=== PATIENT | male | born 1990 | race Caucasian/White ===

== ENCOUNTER 2022-12-30 09:38 | Emergency (ER) | payer OTHER, SELFPAY ==
--- NOTE | ~2022-12-30 | US_ITS ---
EXAMINATION: US SCROTUM CLINICAL INFORMATION: Right testicular pain. COMPARISON: None available. TECHNIQUE: A sonogram of the scrotum was performed assessing turner-scale appearance and color Doppler flow. Spectral Doppler analysis of the arterial and venous flow were performed in the testes bilaterally. FINDINGS: RIGHT: Right testicle measures 4.6 x 1.9 x 4.2 cm, volume 19.2 mL. No focal testicular parenchymal lesions are visualized. Spectral Doppler analysis of the arterial and venous flow is normal in the right testis. Right epididymal head is normal in size. There are small anechoic cysts in the epididymal head measuring 0.54 x 0.46 x 0.45 cm and 0.76 x 0.72 x 0.84 cm. No right hydrocele or varicocele is seen. Right epididymal Doppler flow is normal. LEFT: Left testicle measures 3.9 x 2.3 x 3.4 cm, volume 16.1 mL. No focal testicular parenchymal lesions are visualized. Spectral Doppler analysis of the arterial and venous flow is normal in the left testis. Left epididymal head is normal in size. There is a anechoic epididymal head cyst measuring 0.34 x 0.37 x 0.26). No left hydrocele or varicocele is seen. Left epididymal Doppler flow is normal. US/US scrotum IMPRESSION: Bilateral epididymal head cysts. Unremarkable bilateral testes. Normal arterial and venous Doppler flow seen to both testes and epididymis.
--- NOTE | ~2022-12-30 | CT_ITS ---
EXAMINATION: CT ABDOMEN AND PELVIS WITHOUT CONTRAST CLINICAL INFORMATION: Right flank pain radiating to right testicle. Right scrotal pain. COMPARISON: Ultrasound scrotum 12/30/2022 TECHNIQUE: Multidetector volumetric imaging was performed from the superior aspect of the liver through the pubic symphysis. Sagittal and coronal reformatted images were obtained on the technologist's workstation. This CT examination was performed using dose optimization techniques as appropriate, variously including the following: *Automated exposure control *Adjustment of mA and/or kV according to patient size (this includes techniques or standardized protocols for targeted exams where dose is matched to indication/reason for exam; i.e. extremities or head) *Use of iterative reconstruction technique DLP: 1340 mGy-cm FINDINGS: LUNG BASES: The visualized lung bases are unremarkable. LIVER, GALLBLADDER, AND BILIARY TREE: The liver is normal in size, shape, and attenuation. No focal hepatic lesion or biliary ductal dilatation is present. The gallbladder has been surgically removed. PANCREAS: Unremarkable. SPLEEN: Unremarkable. ADRENAL GLANDS: Unremarkable. KIDNEYS AND URETERS: The kidneys are normal in size, shape, and attenuation. There is a 4 mm radiopaque calculi right proximal ureter with mild hydroureteronephrosis and mild perinephric stranding. There are punctate densities seen in the midpole and upper pole right kidney probable small cyst radiopaque calculi measuring 1-2 mm. No radiopaque density seen in left kidney. No left-sided hydronephrosis. BLADDER: The bladder is unremarkable. GASTROINTESTINAL TRACT: There is scattered stool and gas seen in the colon without significant distention. The small bowel loops are normal caliber. Appendix is normal caliber. No inflammatory process seen in the abdomen. . Scattered calcifications are seen in the left pelvis ABDOMINAL WALL: Small umbilical hernia containing fat. LYMPH NODES: Normal. VASCULAR: Unremarkable. PELVIC VISCERA: Unremarkable. OSSEOUS STRUCTURES: No aggressive lytic or sclerotic process seen. CT/CT abdomen pelvis wo IV con IMPRESSION: 1. 4 mm radiopaque calculi right proximal ureter with mild hydroureteronephrosis and perinephric stranding. 2. There are punctate 1-2 mm radiopaque calculi in the midpole and upper pole right kidney. Fleischner guidelines were followed.
--- NOTE | ~2022-12-30 | US_ITS ---
EXAMINATION: US SCROTUM CLINICAL INFORMATION: Right testicular pain. COMPARISON: None available. TECHNIQUE: A sonogram of the scrotum was performed assessing turner-scale appearance and color Doppler flow. Spectral Doppler analysis of the arterial and venous flow were performed in the testes bilaterally. FINDINGS: RIGHT: Right testicle measures 4.6 x 1.9 x 4.2 cm, volume 19.2 mL. No focal testicular parenchymal lesions are visualized. Spectral Doppler analysis of the arterial and venous flow is normal in the right testis. Right epididymal head is normal in size. There are small anechoic cysts in the epididymal head measuring 0.54 x 0.46 x 0.45 cm and 0.76 x 0.72 x 0.84 cm. No right hydrocele or varicocele is seen. Right epididymal Doppler flow is normal. LEFT: Left testicle measures 3.9 x 2.3 x 3.4 cm, volume 16.1 mL. No focal testicular parenchymal lesions are visualized. Spectral Doppler analysis of the arterial and venous flow is normal in the left testis. Left epididymal head is normal in size. There is a anechoic epididymal head cyst measuring 0.34 x 0.37 x 0.26). No left hydrocele or varicocele is seen. Left epididymal Doppler flow is normal. US/US scrotum doppler IMPRESSION: Bilateral epididymal head cysts. Unremarkable bilateral testes. Normal arterial and venous Doppler flow seen to both testes and epididymis.
[2022-12-30 09:41] VITALS: BP 190/126; PULSE 75; RESP 19; TEMP 36.6; O2SAT 98; BMI 49.5
[2022-12-30 10:32] LABS: MANUAL DIFF FLAG NO
[2022-12-30 10:34] LABS: Basophils Absolute Auto 0.1 X10*3/uL (0.0-0.2); Basophils Percent Auto 0.6 % (0-2); Eosinophils Absolute Auto 0.1 X10*3/uL (0.0-0.4); Eosinophils Percent Auto 0.9 % (0-4); Hematocrit 42.9 % (42.0-52.0); Hemoglobin 14.9 g/dl (14.0-18.0); Imm Gran Abs Auto 0.03 X10*3/uL (0.00-0.03); Imm Gran Pct Auto 0.3 % (0.0-0.4); Lymphocytes Absolute Auto 1.9 X10*3/uL (1.2-4.9); Lymphocytes Percent Auto 20.4 % (20-40); Mean Corpuscular HGB Conc 34.7 g/dl (31.0-36.0); Mean Corpuscular Hemoglobin 29.1 pg (27.0-33.0); Mean Corpuscular Volume 83.8 fL (80.0-98.0); Mean Platelet Volume 10.2 fL (9.4-12.4); Monocytes Absolute Auto 0.6 X10*3/uL (0.1-1.2); Neutrophils Absolute Auto 6.8 x10*3/uL (2.0-8.3); Neutrophils Percent Auto 71.8 % (45-73); Platelet Count 230 X10*3/uL (160-400); Red Blood Count 5.12 X10*6/uL (4.60-5.80); Red Cell Distribution Width 11.9 % (11.0-16.0); White Blood Count 9.5 X10*3/uL (4.8-10.8)
--- NOTE | 2022-12-30 10:48 | ED_ITS ---
HPI - Male Genitourinary General Chief complaint: Urogenital-Male Stated complaint: Kidney stone Time Seen by Provider: 12/30/22 10:48 Source: patient, RN notes reviewed and old records reviewed Mode of arrival: ambulatory History of Present Illness HPI Narrative: 32-year-old male with a past medical history of renal stones presenting to the ED complaining of right flank pain radiating to RLQ and right testicle with associated nausea and vomiting x this morning. Admits to similar symptoms in the past on contralateral side. Denies hematuria/dysuria, concern for STI/discharge, new sexual partners, trauma Related Data Previous Rx's Medication Instructions Recorded hydrocodone 5 mg-acetaminophen 325 1 tab PO Q8H PRN pain, severe 3 12/30/22 mg tablet days #9 tabs ketorolac 10 mg tablet 10 mg PO TID PRN pain 5 days #15 12/30/22 tabs prednisone 20 mg tablet 20 mg PO DAILY 5 days #5 tabs 12/30/22 tamsulosin 0.4 mg capsule (Flomax) 0.4 mg PO DAILY #14 caps 12/30/22 Allergies Allergy/AdvReac Type Severity Reaction Status Date / Time No Known Allergies Allergy Verified 12/30/22 09:40 Review of Systems 2 Review of Systems: Constitutional: No Fever, No Chills ENT/Mouth: No Ear Pain, No Nasal Congestion, No Sinus Pain, No Hoarseness, No sore throat, No Rhinorrhea, No Swallowing Difficulty Cardiovascular: No Chest Pain, No SOB Respiratory: No Cough Gastrointestinal: + Nausea, + Vomiting, No Diarrhea, No Constipation, + Abdominal pain Genitourinary: No Dysuria, No Urinary Frequency, No Hematuria, No Urinary Incontinence/retention, No Urgency, + Flank Pain Musculoskeletal: No joint pain, No Myalgias, No Joint Swelling Skin: No Skin Lesions, No rash Neuro: No Weakness Yes all other systems are reviewed and are negative Constitutional: Constitutional: Reports as per [facility] Past Medical History Attestation statement: The following information was validated with the patient. Source: old records reviewed Social History Advance Directives: No Advance Directives Information Provided: Yes Physical Exam 2 Vital Signs: Vital Signs: Last Vital Signs Temp 98.5 F 12/30/22 14:24 Pulse 76 12/30/22 14:24 Resp 16 12/30/22 14:24 BP 172/102 H 12/30/22 14:24 Pulse Ox 98 12/30/22 14:24 O2 Del Method Room Air 12/30/22 14:24 BMI result Body Mass Index 49.5 Const: General: cooperative, healthy appearing and no acute distress O rientation/consciousness: patient oriented x3 Limitations: no limitations HEENT: Head: Yes normal to inspection and Yes atraumatic Ears: hearing grossly normal bilaterally General nose exam: Normal external nose present Face and sinus: Yes normal facial exam Eyes: General: appearance normal, both eyes and all related structures EOM: EOMs intact bilaterally Neck: Neck: Yes normal visual inspection and Yes no meningeal signs Resp: Effort & Inspection: normal respiratory effort and no respiratory distress Auscultation: clear to auscultation bilaterally Cardio: Rate: regular rate Heart sounds: S1 normal heart sound present and S2 normal heart sound present GI: Inspection: Yes normal to inspection Palpation (GI): Soft to palpation, Tenderness to palpation present (GI) with no rebound tenderness, no guarding and not rigid : General: Yes CVA tenderness on the right Male General Exam: No hernia Penis: normal penis and circumcised Meatus: meatus normal Testes: no testicular swelling and testicular tenderness on the right Back/Spine/Pelvis: Back: CVA tenderness Skin: Rashes: no rashes Wounds: no wounds Neuro: General: patient oriented x3, tone normal and no meningeal signs C ranial nerves: Yes CN's II-XII intact bilaterally Gait exam (Neuro): Normal gait present Extrem: General: Yes normal to inspection Course Course Course Narrative: -1300-- labs reassuring CT abdomen pelvis wo IV con IMPRESSION: 1. 4 mm radiopaque calculi right proximal ureter with mild hydroureteronephrosis and perinephric stranding. 2. There are punctate 1-2 mm radiopaque calculi in the midpole and upper pole right kidney. Fleischner guidelines were followed. US scrotum IMPRESSION: Bilateral epididymal head cysts. Unremarkable bilateral testes. Normal arterial and venous Doppler flow seen to both testes and epididymis. -1308--on re-evaluation patient reports mild symptomatic improvement however still reports continued pain. Will consult Urology, Dr. Ramos > spoke with Urology who recommended trying Dilaudid and prednisone, if patient comfortable can be discharged home as stone should pass -1443--on re-evaluation patient reports symptomatic improvement, is tolerating p.o.. UA not infected. Feels comfortable with discharge home Results discussed with patient including worrisome signs and symptoms and strict return precautions, and when to return to the emergency department. They verbalized understanding and feel safe for discharge at this time. Medications Administered Discontinued Medications Generic Name Dose Route Start Last Admin Trade Name Freq PRN Reason Stop Dose Admin Sodium Chloride 1,000 mls @ 999 mls/hr 12/30/22 11:00 12/30/22 14:39 Ns IV 12/30/22 12:00 Infused .Q1H1M SRIKANTH Infusion Sodium Chloride 1,000 mls @ 999 mls/hr 12/30/22 12:45 12/30/22 14:30 Ns IV 12/30/22 13:45 999 mls/hr .Q1H1M SRIKANTH Administration Ketorolac Tromethamine 15 mg 12/30/22 10:48 12/30/22 11:00 Ketorolac Tromethamine 15 Mg/Ml Vial IVPUSH 12/30/22 10:49 15 mg ONCE ONE Administration Ketorolac Tromethamine 15 mg 12/30/22 12:04 12/30/22 12:09 Ketorolac Tromethamine 15 Mg/Ml Vial IVPUSH 12/30/22 12:05 15 mg ONCE ONE Administration Morphine Sulfate 2 mg 12/30/22 10:57 12/30/22 11:02 Morphine Sulfate 2 Mg/Ml Cartridge IVPUSH 12/30/22 10:58 2 mg ONCE ONE Administration Protocol Morphine Sulfate 2 mg 12/30/22 12:04 12/30/22 12:09 Morphine Sulfate 2 Mg/Ml Cartridge IVPUSH 12/30/22 12:05 2 mg ONCE ONE Administration Protocol Ondansetron HCl 4 mg 12/30/22 10:57 12/30/22 11:04 Ondansetron Hcl 4 Mg/2 Ml Vial IVPUSH 12/30/22 10:58 4 mg ONCE ONE Administration Prednisone 20 mg 12/30/22 13:44 12/30/22 14:54 Prednisone 20 Mg Tablet PO 12/30/22 13:45 20 mg ONCE ONE Administration Tamsulosin HCl 0.4 mg 12/30/22 12:34 12/30/22 12:53 Tamsulosin Hcl 0.4 Mg Capsule PO 12/30/22 12:35 0.4 mg ONCE ONE Administration Medical Decision Making Medical Decision Making [facility] Narrative: 32-year-old male with a past medical history of renal stones presenting to the ED complaining of right flank pain radiating to RLQ and right testicle with associated nausea and vomiting x this morning. On exam hypertensive likely from pain, appears uncomfortable, abdomen soft/nontender, R CVAT and right testicular tenderness noted. Concern for renal stone/colic vs UTI or pyelo. Testicular torsion on differential however lower. Lower suspicion for STI, diverticulitis/colitis or ischemic bowel Low suspicion for severe sepsis at this time Plan: Labs, UA, CT AP, ultrasound, IVF, pain control Please refer to course for remaining clinical decision making, interpretation of labs/imaging results, and discussions with consultants and/or family members. Differential Diagnosis Differential Diagnoses: The differential diagnosis associated with the presentation includes As above Admission/Observation Consideration of admission/observation: Escalation of care including admission/observation considered Lab Data [facility] Lab Attestation statement: I reviewed the patient's lab results. 12/30/22 10:29 12/30/22 10:29 Labs: Lab Results 12/30/22 12/30/22 12/30/22 Range/Units 10:29 11:36 13:53 WBC 9.5 (4.8-10.8) X10*3/uL RBC 5.12 (4.60-5.80) X10*6/uL Hgb 14.9 (14.0-18.0) g/dl Hct 42.9 (42.0-52.0) % MCV 83.8 (80.0-98.0) fL MCH 29.1 (27.0-33.0) pg MCHC 34.7 (31.0-36.0) g/dl RDW 11.9 (11.0-16.0) % Plt Count 230 (160-400) X10*3/uL MPV 10.2 (9.4-12.4) fL Immature Gran % (Auto) 0.3 (0.0-0.4) % Neut % (Auto) 71.8 (45-73) % Lymph % (Auto) 20.4 (20-40) % Chaves % (Auto) 6.0 (2-11) % Eos % (Auto) 0.9 (0-4) % Baso % (Auto) 0.6 (0-2) % Lymph # (Auto) 1.9 (1.2-4.9) X10*3/uL Chaves # (Auto) 0.6 (0.1-1.2) X10*3/uL Eos # (Auto) 0.1 (0.0-0.4) X10*3/uL Baso # (Auto) 0.1 (0.0-0.2) X10*3/uL Abs Immat Gran (auto) 0.03 (0.00-0.03) X10*3/uL Absolute Neuts (auto) 6.8 (2.0-8.3) x10*3/uL Absolute Nucleated RBC 0.000 (0.0-0.012) X10*3/uL Nucleated RBC % (auto) 0.0 (0.0-0.2) /100WBC Sodium 139 (135-145) mmol/L Potassium 4.0 (3.3-5.1) mmol/L Chloride 108 (96-108) mmol/L Carbon Dioxide 22 (22-29) mmol/L Anion Gap 13 (12-20) BUN 15 (9-16) mg/dL Creatinine 1.09 (0.5-1.4) mg/dL Estim Creat Clear Calc 153.7 Estimated GFR > 60 Random Glucose 132 H (60-115) mg/dL Calcium 9.9 (8.4-10.2) mg/dL Magnesium 1.7 (1.6-2.6) mg/dL Total Bilirubin 0.4 (0.0-1.0) mg/dL AST 37 (5-37) U/L ALT 74 H (0-40) U/L Alkaline Phosphatase 83 (39-117) U/L Total Protein 7.6 (6.5-8.0) g/dL Albumin 4.2 (3.5-5.0) g/dL Lipase 28 (8-78) U/L Urine Color Yellow Urine Appearance Clear Urine pH 5.5 (5.0-9.0) Ur Specific [place] 1.015 (1.005-1.025) Urine Protein Negative (Neg-Trace) mg/dL Urine Glucose (UA) Negative (Negative) mg/dL Urine Ketones Negative (Negative) mg/dL Urine Blood Trace H (Negative) Urine Nitrite Negative (Negative) Ur Leukocyte Esterase Negative (Negative) Urine RBC 0-2 (0-2) /HPF Urine WBC 0-5 (0-5) /HPF Ur Squamous Epith Cells 0-2 (0-2) /HPF Urine Bacteria None Seen (None Seen) Hyaline Casts 0-2 (0-2) /LPF Chlam trachomat DNA PCR NOT DETECTED (Not Detect.) N.gonorrhoeae DNA (PCR) NOT DETECTED (Not Detect.) Radiology Impression Discussion of test interpretation with radiology: I have reviewed the radiologist's reading. External Record Review External record reviewed: Inpatient record, Office record, Outpatient record, Prior outpatient labs, Prior outpatient radiology, Primary care record and Outside ED record Tests considered The following testing was considered but not selected: As above Prescription Management I considered prescription management with: Pain Medication Chronic Conditions Patient?s care impacted by: Other (Renal stones) Discharge Plan Discharge Clinical Impression: Calculus of proximal right ureter Patient Disposition: Home, Self-Care Instructions: Ureteral Stones (ED) Additional Instructions: You have a 4 mm stone in your right proximal ureter. This should pass on its own Flomax to help dilate the ureter to aid with passing Toradol as an anti-inflammatory/pain medication, take with food > do not take both Toradol and Motrin/ibuprofen/Aleve as they are similar medications, only take 1. Prednisone is steroid to help with inflammation [place] is an opiate pain medication, take only when pain is severe for the next 3 days YOU NEED TO FOLLOW-UP WITH UROLOGY. IF SYMPTOMS PERSIST OR WORSEN/PAIN BECOMES UNBEARABLE, YOUR UNABLE TO URINATE HAVE PERSISTENT NAUSEA/VOMITING OR FEVER RETURN TO THE ED Prescriptions: New tamsulosin [Flomax] 0.4 mg capsule 0.4 mg PO DAILY Qty: 14 0RF prednisone 20 mg tablet 20 mg PO DAILY 5 Days Qty: 5 0RF ketorolac 10 mg tablet 10 mg PO TID PRN (Reason: pain) 5 Days Qty: 15 0RF hydrocodone-acetaminophen 5-325 mg tablet 1 tab PO Q8H PRN (Reason: pain, severe) 3 Days Qty: 9 0RF Rx Instructions: Partial Fill upon patient request. Referrals: [facility] [Provider Group] - 1 week Interventions: ED Discharge Assessment Last Done: 12/30/22 14:57 Discharge Date/Time: 12/30/22 14:58
[2022-12-30 11:00] LABS: Alanine Aminotransferase 74 U/L (0-40); Albumin Level 4.2 g/dL (3.5-5.0); Alkaline Phosphatase 83 U/L (39-117); Anion Gap 13 (12-20); Aspartate Amino Transferase 37 U/L (5-37); Bilirubin Total 0.4 mg/dL (0.0-1.0); Blood Urea Nitrogen 15 mg/dL (9-16); Calcium 9.9 mg/dL (8.4-10.2); Carbon Dioxide 22 mmol/L (22-29); Chloride 108 mmol/L (96-108); Creatinine Clr Calc Pharmacy 153.7; Estimated Glomerular Filt Rate > 60; Glucose Random 132 mg/dL (60-115); Sodium 139 mmol/L (135-145); Total Protein 7.6 g/dL (6.5-8.0)
[2022-12-30] MEDS: 0.9 % Sodium Chloride 1,000 ML 999 ML IV ×2 (11:00→14:30)
[2022-12-30] MEDS: Ketorolac Tromethamine 15 MG/ML VIAL IVPUSH ×2 (11:00→12:09)
[2022-12-30 11:02] LABS: Lipase 28 U/L (8-78); Magnesium 1.7 mg/dL (1.6-2.6)
[2022-12-30] MEDS: Morphine Sulfate 2 MG/ML CARTRIDGE IVPUSH ×2 (11:02→12:09)
[2022-12-30] MEDS: ondansetron HCL 4 MG/2 ML VIAL IVPUSH (11:04)
[2022-12-30 12:24] VITALS: BP 155/98; PULSE 76; RESP 16; TEMP 36.9; O2SAT 95
[2022-12-30] MEDS: Tamsulosin HCL 0.4 MG CAPSULE PO (12:53)
[2022-12-30 14:03] LABS: Appearance Urine Clear; Color Urine Yellow; Glucose Urine UA Negative (Negative); Leukocyte Esterase Urine Negative (Negative); Nitrite Urine Negative (Negative); PH 5.5 (5.0-9.0); Specific Gravity - Urine 1.015 (1.005-1.025); UMIC TRIGGER UACC YES; Urine Blood Trace (Negative); Urine Ketones Negative (Negative); Urine Protein Negative (Neg-Trace)
[2022-12-30 14:08] LABS: Bacteria Urine None Seen (None Seen); Hyaline Casts Urine 0-2 /LPF (0-2); RBC Urine 0-2 /HPF (0-2); Squamous Epithelial Cell Urine 0-2 /HPF (0-2); WBC Urine 0-5 /HPF (0-5)
[2022-12-30 14:24] VITALS: BP 172/102; PULSE 76; RESP 16; TEMP 36.9; O2SAT 98
[2022-12-30] MEDS: predniSONE 20 MG TABLET PO (14:54)
[2022-12-30 18:24] LABS: CT PCR NOT DETECTED (Not Detect.); NG PCR NOT DETECTED (Not Detect.)
== END 2022-12-30 14:58 | disposition home or self-care (01) ==
PROVIDERS: Physician Assistant; Emergency Provider Emergency Medicine Emergency Medical Services; PCP Nurse Practitioner Family
DX: N20.1 Calculus of ureter (principal); R10.31 Right lower quadrant pain; N50.811 Right testicular pain; R11.2 Nausea with vomiting, unspecified; R10.2 Pelvic and perineal pain; Z79.899 Other long term (current) drug therapy
CPT/HCPCS: 0353U; 36415; 74176; 76870; 80053; 81001; 83690; 83735; 85025; 93975; 96361; 96374; 96375; 96376; 99284; 99285; J1885; J2270; J2405

== ENCOUNTER 2024-12-26 10:24 | Emergency (ER) | payer OTHER, SELFPAY ==
[2024-12-26 10:49] VITALS: BP 195/113; PULSE 80; RESP 18; O2SAT 98; BMI 44.8
--- NOTE | 2024-12-26 10:53 | ED.GENADULT ---
HPI - General Adult General Chief complaint: General Medical Stated complaint: medication reaction Time Seen by Provider: 12/26/24 11:24 Source: patient Mode of arrival: ambulatory Limitations: no limitations History of Present Illness ED Provider: DR. Alanis HPI narrative: 34-year-old male with history of ADHD and depression has been controlled with fluoxetine 30 mg daily and Adderall because of worsening of patient mental symptoms his fluoxetine dose was increased from 30 mg daily to 40 mg daily for the past 2 weeks, patient started to notice becoming irritable, easily get agitated, worsening of his mental symptoms including depression with vague suicidal ideation but no specific plans, declined any visual hallucination or auditory hallucination. No tremor, no involuntary movements , no subjective unexplainable fever. No use of recreational drugs. Related Data Home Medications ?Medication ?Instructions ?Recorded ?Confirmed dextroamphetamine-amphetamine ER 1 cap PO QAM 12/26/24 12/26/24 20 mg 24hr capsule,extend release (Adderall XR) fluoxetine 10 mg capsule 30 mg PO BEDTIME 12/26/24 12/26/24 hydroxyzine HCl 25 mg tablet 25 mg PO QID PRN anxiety 12/26/24 12/26/24 omeprazole 40 mg capsule,delayed 40 mg PO DAILY 12/26/24 12/26/24 release trazodone 50 mg tablet 50 - 100 mg PO BEDTIME 12/26/24 12/26/24 Previous Rx's ?Medication ?Instructions ?Recorded fluoxetine 10 mg tablet 10 mg PO DAILY #20 tabs 12/26/24 fluoxetine 20 mg tablet 20 mg PO DAILY #20 tabs 12/26/24 Allergies Allergy/AdvReac Type Severity Reaction Status Date / Time gluten Allergy Gastrointestinal Verified 12/26/24 12:39 Upset Review of Systems Review of Systems: All other systems are reviewed and are negative Constitutional: Reports as per HPI and Reports no additional constitutional complaints Eyes: Reports as per HPI and Reports no additional eye complaints Reports system reviewed and no additional complaints, except as documented Cardiovascular: Reports as per HPI and Reports no additional cardiovascular complaints Respiratory: Reports as per HPI and Reports no additional respiratory complaints Gastrointestinal: Reports as per HPI and Reports no additional gastrointestinal complaints Genitourinary: Reports no additional female genitourinary complaints Musculoskeletal: Reports no additional musculoskeletal complaints Skin/Breast: Reports system reviewed and no additional complaints, except as docu Psychiatric: Reports no additional psychiatric complaints Endocrine: Reports no additional endocrine complaints Hematologic/Lymphatic: Reports no additional hematologic/lymphatic complaints Allergic/Immunologic: Reports no additional allergic/immunologic complaints Reports system reviewed and no additional complaints, except as documented and Reports Abnormal speech present [facility] Social History Social History Advance Directives: No Advance Directives Information Provided: No Do you have a plan to hurt others: No Plan Physical Exam ED Vital Signs: Vital Signs - 24 hr 12/26/24 10:49 12/26/24 14:21 12/26/24 14:37 Temperature 97.4 F 97.4 F Pulse Rate 80 74 74 Respiratory Rate 18 16 16 Blood Pressure 195/113 H 183/108 H 183/108 H Pulse Oximetry 98 100 100 Oxygen Delivery Method Room Air Room Air Room Air 12/26/24 14:37 Temperature 97.4 F Pulse Rate 74 Respiratory Rate 16 Blood Pressure 183/108 H Pulse Oximetry Oxygen Delivery Method Room Air BMI result Body Mass Index 44.8 Vital signs have been reviewed and appear to be correct. Blood pressure elevated. Heart rate normal. Respiratory rate normal. Temperature normal. Oxygen saturation normal. Appearance: Alert. Oriented X3. No acute distress. Head: Normal external exam. Normocephalic. Atraumatic. No [place] signs noted. No raccoon eyes noted Eyes: PERRLA. EOMI. Conjunctiva and sclera normal. Eyelids normal. ENT: TM's Normal. Pharynx normal. Uvula midline. Moist mucous membranes. No trismus noted. No drooling noted. No muffled voice noted. Neck: Normal inspection. Neck supple. FROM. No adenopathy. Thyroid Normal. No meningeal signs. No neck mass noted. CVS: Normal heart rate and rhythm. Heart sound normal. No murmurs noted. Pulses normal throughout. Respiratory: No respiratory distress. Painless inspiration. Breath sounds normal. No wheezes/rales/rhonchi noted. Chest nontender. No accessory muscle usage noted or decreased air movement noted. Abdomen: Soft and nontender. Bowel sounds normal in all 4 quadrants. No distention noted. No organomegaly noted. No visible injury noted. Back: No CVA tenderness. Full range of motion noted. Skin: Skin warm and dry. Normal skin color. Normal skin turgor. No rashes/lesions/lacerations noted. Extremities: No lower extremity edema. Extremities exhibit normal range of motion. Extremities nontender. Neuro: Mental status: Normal attention, orientation, memory, and affect. Cranial nerves: Pupils are equal, round and reactive to light, EOMI, visual jorge are fall, face is symmetric, facial sensations are normal. Motor examination normal muscle tone, strength to 4 extremities. DTR are +2, planter's are flexor. Sensory exam; normal coordination, no ataxia, gait stable. Cerebellar exam: [id number] and fyok-[id number]-eted is normal. Extrapyramidal system: No tremors, no rigidity with normal facial expressions. Pronator drift not present, no tremor, no hyperreflexia, no clonus is appreciated. Patient Orientation: Person, Place, Time and Situation, okay hygiene and grooming. Fair eye contact, attentive, no tics or tremors. Level of Consciousness: Awake, Appropriate and Alert Patient Behavior: Appropriate, Guarded, Cooperative and Anxious Mood Description: Constricted, Blunted and Apprehensive Affect Description: Constricted, Blunted and Apprehensive Patient Cognition Impaired: No Ability to Follow Directions: Excellent Speech Pattern: Clear, Appropriate and Spontaneous Speech, nonpressured, spontaneous with regular rate and rhythm, normal volume and prosody. No dysarthria. Memory Description: Intact, Immediate Intact and Short Term Intact Hallucinations: None Delusions: Not Present Thought Process: Intact Thought Content: vague suicidal thoughts with no plan and denies Homicidal Ideation. Depressive Symptoms: Not present. Judgement and Insight: Limited but adequate. Course Course Course Narrative: RME: 34-year-old male presents to the ED for evaluation possible side effects of increased dose of fluoxetine. Patient states is crease in aggression, agitation, depression, suicidal thoughts since his psychiatrist increased the dose of fluoxetine. His psychiatrist informed him to come to the ED to be evaluated for serotonin syndrome. Patient is hypertensive. Labs ordered. Patient to be brought back to the ED Reevaluation(s) Reevaluation #1: 34-year-old male with chronic depression on fluoxetine presented for increased agitation but no clonus, inventory movement, hyperreflexia, hyperthermia or tremor however patient is at risk for serotonin syndrome at this point do not meet criteria for serotonin syndrome because recent increase of fluoxetine from 30 mg daily to 40 mg daily I would resume bag the 30 mg daily dose and follow-up with a therapist. Patient feels safe to be discharged home with his , at this point patient have no SI or HI. High blood pressure reading in the emergency department with noted patient has no blurry vision, no headache, no CP, no abdominal pain, patient was instructed to monitor blood pressure and follow-up with his PCP. Time: 14:16 Medical Decision Making Differential Diagnosis Differential Diagnoses: The differential diagnosis associated with the presentation includes ( Serotonin syndrome, worsening of depression, SI, HI, electrolyte derangement, severe anemia, medical clearance.) Admission/Observation Consideration of admission/observation: Escalation of care including admission/observation considered Lab Data MDM Lab Attestation statement: I reviewed the patient's lab results. 12/26/24 11:14 12/26/24 11:14 Labs: Lab Results 12/26/24 Range/Units 11:14 WBC 7.3 (4.8-10.8) X10*3/uL RBC 5.22 (4.60-5.80) X10*6/uL Hgb 15.5 (14.0-18.0) g/dl Hct 46.4 (42.0-52.0) % MCV 88.9 (80.0-98.0) fL MCH 29.7 (27.0-33.0) pg MCHC 33.4 (31.0-36.0) g/dl RDW 12.0 (11.0-16.0) % Plt Count 247 (160-400) X10*3/uL MPV 9.8 (9.4-12.4) fL Immature Gran % (Auto) 0.1 (0.0-0.4) % Neut % (Auto) 53.3 (45-73) % Lymph % (Auto) 36.6 (20-40) % [place] % (Auto) 7.0 (2-11) % Eos % (Auto) 2.0 (0-4) % Baso % (Auto) 1.0 (0-2) % Lymph # (Auto) 2.7 (1.2-4.9) X10*3/uL [place] # (Auto) 0.5 (0.1-1.2) X10*3/uL Eos # (Auto) 0.2 (0.0-0.4) X10*3/uL Baso # (Auto) 0.1 (0.0-0.2) X10*3/uL Abs Immat Gran (auto) 0.01 (0.00-0.03) X10*3/uL Absolute Neuts (auto) 3.9 (2.0-8.3) x10*3/uL Absolute Nucleated RBC 0.000 (0.0-0.012) X10*3/uL Nucleated RBC % (auto) 0.0 (0.0-0.2) /100WBC Sodium 141 (135-145) mmol/L Potassium 4.3 (3.3-5.1) mmol/L Chloride 107 (96-108) mmol/L Carbon Dioxide 27 (22-29) mmol/L Anion Gap 11 L (12-20) BUN 15 (9-16) mg/dL Creatinine 0.94 (0.5-1.4) mg/dL Estim Creat Clear Calc 165.1 Estimated GFR > 60 Random Glucose 105 (60-115) mg/dL Calcium 9.6 (8.4-10.2) mg/dL Magnesium 2.0 (1.6-2.6) mg/dL Total Bilirubin 0.3 (0.0-1.0) mg/dL AST 30 (5-37) U/L ALT 53 H (0-40) U/L Alkaline Phosphatase 112 (39-117) U/L Total Creatine Kinase 125 (38-174) U/L Total Protein 7.8 (6.5-8.0) g/dL Albumin 4.7 (3.5-5.0) g/dL TSH 2.82 (0.32-4.0) uIU/mL Urine Color Yellow Urine Appearance Clear Urine pH 5.5 (5.0-9.0) Ur Specific [place] 1.020 (1.005-1.025) Urine Protein Negative (Neg-Trace) mg/dL Urine Glucose (UA) Negative (Negative) mg/dL Urine Ketones Negative (Negative) mg/dL Urine Blood Negative (Negative) Urine Nitrite Negative (Negative) Ur Leukocyte Esterase Negative (Negative) Urine Opiates Screen Not Detected (Not Detect) Ur Buprenorphine Scrn Not Detected (Not Detect) ng/mL Ur Oxycodone Screen Not Detected (Not Detect) ng/mL Urine Methadone Screen Not Detected (Not Detect) ng/mL Urine Fentanyl Screen Not Detected (Not Detect) Ur Barbiturates Screen Not Detected (Not Detect) Ur Phencyclidine Scrn Not Detected (Not Detect) Ur Amphetamines Screen POSITIVE H (Not Detect) U Benzodiazepines Scrn Not Detected (Not Detect) Urine Cocaine Screen Not Detected (Not Detect) U Marijuana (THC) Screen Not Detected (Not Detect) Ethyl Alcohol < 10 mg/dL Discharge Plan Discharge Clinical Impression: Anxiety, Essential hypertension Patient Disposition: Home, Self-Care Instructions: Anxiety (ED) Additional Instructions: stop taking 40 mg fluoxetine at night and replace it with 20 mg tablet + 10 mg tablet total of 30 mg tablets a day. Follow-up with your PCP for elevated high blood pressure. You were seen in our Emergency Department today for treatment of a behavioral health issue. It is important after your visit that you follow up with either your behavioral health provider or a primary care doctor within 7 days.? If you have trouble finding a therapist you can reach out to [place] [phone] [facility] [place] [facility] can be reached 7 days a week 24 hours a day.? Call [phone] to speak with someone.? Return for any worsening symptoms or concerns such as thoughts of self harm or harm to others. Please call 911 if you feel your mental health is worsening.? Prescriptions: New fluoxetine 20 mg tablet 20 mg PO DAILY Qty: 20 0RF fluoxetine 10 mg tablet 10 mg PO DAILY Qty: 20 0RF No Action trazodone 50 mg tablet 50 - 100 mg PO BEDTIME omeprazole 40 mg capsule,delayed release(DR/EC) 40 mg PO DAILY dextroamphetamine-amphetamine [Adderall XR] 20 mg capsule,extended release 24hr 1 cap PO QAM fluoxetine 10 mg capsule 30 mg PO BEDTIME hydroxyzine HCl 25 mg tablet 25 mg PO QID PRN (Reason: anxiety) Interventions: ED Discharge Assessment Last Done: 12/26/24 14:37 Discharge Date/Time: 12/26/24 15:05 Print Language: Kosovan
[2024-12-26 11:19] LABS: MANUAL DIFF FLAG NO
[2024-12-26 11:22] LABS: Hematocrit 46.4 % (42.0-52.0); Hemoglobin 15.5 g/dl (14.0-18.0); Imm Gran Abs Auto 0.01 X10*3/uL (0.00-0.03); Imm Gran Pct Auto 0.1 % (0.0-0.4); Lymphocytes Absolute Auto 2.7 X10*3/uL (1.2-4.9); Mean Corpuscular HGB Conc 33.4 g/dl (31.0-36.0); Mean Corpuscular Hemoglobin 29.7 pg (27.0-33.0); Mean Corpuscular Volume 88.9 fL (80.0-98.0); NRBC Abs Auto 0.000 X10*3/uL (0.0-0.012); NRBC Pct Auto 0.0 /100WBC (0.0-0.2); Platelet Count 247 X10*3/uL (160-400); Red Blood Count 5.22 X10*6/uL (4.60-5.80); White Blood Count 7.3 X10*3/uL (4.8-10.8)
--- NOTE | 2024-12-26 11:23 | PC.NURSE ---
Pt reports increase in fluoxetine 2wks ago. Has been having increase anger, agitation, mood swings since. Pt spoke with psychiatrist and was told to come to ED for possible serotonin syndrome workup. Pt calm and cooperative. Denies SI/HI/AVH.
[2024-12-26 11:24] LABS: Appearance Urine Clear; Glucose Urine UA Negative (Negative); PH 5.5 (5.0-9.0); Specific Gravity - Urine 1.020 (1.005-1.025)
[2024-12-26 11:36] LABS: Cannabinoid Screen Urine Not Detected (Not Detect)
[2024-12-26 11:40] LABS: Alanine Aminotransferase 53 U/L (0-40); Albumin Level 4.7 g/dL (3.5-5.0); Alkaline Phosphatase 112 U/L (39-117); Anion Gap 11 (12-20); Aspartate Amino Transferase 30 U/L (5-37); Blood Urea Nitrogen 15 mg/dL (9-16); Calcium 9.6 mg/dL (8.4-10.2); Carbon Dioxide 27 mmol/L (22-29); Chloride 107 mmol/L (96-108); Creatinine Clr Calc Pharmacy 165.1; Estimated Glomerular Filt Rate > 60; Magnesium 2.0 mg/dL (1.6-2.6); Potassium 4.3 mmol/L (3.3-5.1); Sodium 141 mmol/L (135-145); Total Protein 7.8 g/dL (6.5-8.0)
[2024-12-26 12:12] LABS: Thyroid Stimulating Hormone 2.82 uIU/mL (0.32-4.0)
--- NOTE | 2024-12-26 13:58 | MHC.CARE ---
Patient evaluated by the CARE Team, he does not require an inpatient psychiatric admission at this time. ED provider, Dr. Alanis, updated and in agreement with plan to discharge.
[2024-12-26 14:21] VITALS: BP 183/108; PULSE 74; RESP 16; TEMP 36.3; O2SAT 100
[2024-12-26 14:37] VITALS: BP 183/108; PULSE 74; RESP 16; TEMP 36.3; O2SAT 100
== END 2024-12-26 15:05 | disposition home or self-care (01) ==
PROVIDERS: Physician Assistant; Emergency Provider Emergency Medicine; PCP Nurse Practitioner Family
DX: F41.9 Anxiety disorder, unspecified (principal); F41.1 Generalized anxiety disorder; F43.0 Acute stress reaction; I10 Essential (primary) hypertension; Z79.899 Other long term (current) drug therapy; Z51.81 Encounter for therapeutic drug level monitoring
CPT/HCPCS: 36415; 80053; 80307; 81003; 82550; 83735; 84443; 85025; 99284; S9485